=== PATIENT | female | born 1955 | race Caucasian/White ===

== ENCOUNTER 2017-06-21 10:16 | Observation (INO) | payer OTHER ==
[~2017-06-21] VITALS: Ht 165.1 cm; Wt 56.2 kg
--- NOTE | ~2017-06-21 | EXE ---
[facility] [place] [address] STRESS ECHOCARDIOGRAM Name: JOHNELIZABETH K Room #: 217-P [facility] IN ..#: [id number] Admission: 06/21/17 Attend Phys: José Knutson, Discharge: Date of : 57 Date of Service: 06/21/17 1558 Report #: [id number] THIS REPORT FOR: //name// APPROVED REPORT Study performed: 06/21/2017 14:19:29 Exam: Stress Echocardiogram Indication: Chest pain Patient Location: Echo lab Stress Nurse: Tonia Palomino RN Room #: 217 Status: routine Ht: 5 ft 5 in HR: 75 bpm BP: 122/72 mmHg Medical History Medical History: Smoking Cardiac Risk Factors: Smoking Exercise History: Indeterminate Procedure The patient underwent an Exercise Stress Test using the Joaquim Protocol. Blood pressure, heart rate, and EKG were monitored. An Echocardiogram was performed by patient service technician pst in four stages in quad fashion. At peak stress, four selected images were obtained and placed side by side with resting images for comparison. Stress Test Details Stress Test: Exercise stress testing was performed using a Joaquim protocol. HR Resting HR: 75 bpm Max Heart Rate (APMHR): 160 bpm Max HR Achieved: 136 bpm Target HR (85% APMHR): 136 bpm % of APMHR: 85 Recovery HR: 83 bpm HR response to stress: Normal HR response to stress BP Resting BP: 122/72 mmHg Max BP: 152/70 mmHg Recovery BP: 138/78 mmHg ECG [facility] [address] [place] [address] STRESS ECHOCARDIOGRAM Name: ELIZABETH LOPEZ Room #: 217-P [facility] IN ..#: [id number] Admission: 06/21/17 Attend Phys: José Knutson, Discharge: Date of : 57 Date of Service: 06/21/17 1558 Report #: [id number] Resting ECG: Sinus Rhythm Stress ECG: Sinus Tachycardia Arrhythmia: None Recovery ECG: Sinus Rhythm Clinical Reason for Termination: Maximal effort Stress Symptoms: Leg Fatigue Exercise duration: 6 min 45 sec Highest Stage Achieved: Stage 3: 3.4 mph at 14% grade. Exercise capacity: 9.3 METs Overall Exercise Capacity for Age: Average Stress ECG Conclusion 1. SUBJECTIVELY NEGATIVE FOR ISCHEMIA 2. ELECTROCARDIOGRAPHICALLY NEGATIVE FOR ISCHEMIA Pre-Stress Echo The resting Echocardiogram showed normal left ventricular contractility with an estimated Ejection Fraction of about >55%. Normal wall motion in all segments on baseline images. Post-Stress Echo The stress Echocardiogram showed normal left ventricular contractility with an estimated Ejection Fraction of about 65-70%. Normal augmentation of wall motion in all segments on post stress images. Clinical Normal augmentation of myocardial wall segments using a 17 segment model. Conclusion Clinical Response: Non-ischemic Exercise Capacity: Average Stress ECG Response: Non-ischemic 1. LOW RISK STUDY No prior study available for comparison. Other Information Study Quality: Adequate [facility] [address] [place] [address] STRESS ECHOCARDIOGRAM Name: JOHNELIZABETH Room #: 217-P ADM IN M.R.#: [id number] Admission: 06/21/17 Attend Phys: José Knutson, Discharge: Date of : 57 Date of Service: 06/21/17 1558 Report #: [id number] <Conclusion> 1. LOW RISK STUDY <ELECTRONICALLY SIGNED> By: Mook Benjamin MD 06/21/17 1558 1558 155 Mook Benjamin MD /INF
--- NOTE | ~2017-06-21 | EKG ---
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1955 Requested By: Hawk Rothman Order Number: [id number] MD: Jelani Haas Measurements Intervals [place] Rate: 70 P: 72 AR: 192 QRS: -88 QRSD: 96 T: 70 QT: 394 QTc: 426 Interpretive Statements Sinus rhythm LAD, consider left anterior fascicular block Abnormal R-wave progression, early transition Compared to ECG 01/10/2001 13:00:24 No significant change was found Electronically Signed On 06-22-2017 8:18:15 CDT by Jelani Haas [email or web address] <ELECTRONICALLY SIGNED> By: Jelani Haas MD, [facility] 06/22/17 0818 1032 [id number] Jelani Haas MD, [facility] /EPI
[2017-06-21 10:32] VITALS: BP 130/60
[2017-06-21] MEDS ORDERED: CELEXA20 MG PO (10:38)
[2017-06-21] MEDS ORDERED: DIPHENHIST50 MG PO (10:38)
[2017-06-21 10:53] LABS: ABSOLUTE NEUTROPHILS 6.7 thou/uL (1.4-8.2); BASOPHILS 0.7 % (0.0-2.0); EOSINOPHILS 1.3 % (0.0-3.0); HEMATOCRIT 42.1 % (37.0-47.0); HEMOGLOBIN 14.6 gm/dL (12.0-15.0); LYMPHOCYTES 17.8 % (24.0-44.0); MCH 31.7 pg (26.0-34.0); MCHC 34.7 g/dL (28.0-37.0); MCV 91.6 fL (80.0-100.0); MONOCYTES 9.4 % (1.0-8.0); PLATELET COUNT 252 thou/uL (150-400); POLYS 70.8 % (36.0-66.0); RDW 13.5 % (10.5-14.5); WBC 9.5 thou/uL (4.0-11.0)
[2017-06-21 11:02] LABS: ANION GAP 9 mmol/L (7-16); BUN 17 mg/dL (7-18); CALCIUM 9.4 mg/dL (8.5-10.1); CHLORIDE 101 mmol/L (98-107); CO2 28 mmol/L (21-32); CREATININE 0.9 mg/dL (0.6-1.0); GLUCOSE 98 mg/dL (74-106); POTASSIUM 3.9 mmol/L (3.5-5.1); SODIUM 138 mmol/L (136-145)
[2017-06-21 11:11] LABS: TROPONIN-I < 0.04 ng/mL (<0.06)
[2017-06-21 12:00] VITALS: BP 130/60
[2017-06-21 12:58] VITALS: BP 109/46
[2017-06-21 15:47] VITALS: BP 109/57
[2017-06-21 18:20] VITALS: BP 109/57
== END 2017-06-21 18:35 | disposition home or self-care (01) ==
LOC: ER 10:16 → EROBS 11:39 → 2N 12:45
PROVIDERS: Nurse Practitioner
DX: R07.89 Other chest pain (principal); F32.9 Major depressive disorder, single episode, unspecified; F41.9 Anxiety disorder, unspecified; Z82.49 Family history of ischemic heart disease and other diseases of the circulatory system; F17.210 Nicotine dependence, cigarettes, uncomplicated